=== PATIENT | female | born 2000 | race Caucasian/White ===

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

== ENCOUNTER 2021-03-11 12:30 | Outpatient (CLI) | payer OTHER ==
[~2021-03-11 12:30] MED LIST changes: +FERROUS SULFAT325 M2 PO
== END 2021-03-11 13:58 | disposition home or self-care (01) ==
LOC: GENOP 12:30
DX: O36.8120 Decreased fetal movements, second trimester, not applicable or unspecified (principal); O36.0920 Maternal care for other rhesus isoimmunization, second trimester, not applicable or unspecified; Z3A.23 23 weeks gestation of pregnancy; Z88.0 Allergy status to penicillin
CPT/HCPCS: 59025

== ENCOUNTER 2021-06-01 11:23 | Outpatient (CLI) | payer OTHER ==
[2021-06-01 13:31] LABS: BUN/CREATININE RATIO 7 (0-10)
== END 2021-06-01 14:30 | disposition home or self-care (01) ==
LOC: GENOP 11:23
PROVIDERS: Obstetrics & Gynecology
DX: O36.8130 Decreased fetal movements, third trimester, not applicable or unspecified (principal); O26.893 Other specified pregnancy related conditions, third trimester; L29.9 Pruritus, unspecified; O99.013 Anemia complicating pregnancy, third trimester; D64.9 Anemia, unspecified; Z88.0 Allergy status to penicillin; Z3A.35 35 weeks gestation of pregnancy
CPT/HCPCS: 59025; 80053; 81001; 82239

== ENCOUNTER 2021-06-04 16:34 | Inpatient (IN) | payer OTHER ==
[~2021-06-04] VITALS: Ht 149.9 cm; Wt 54.9 kg
[2021-06-04 18:10] LABS: RED BLOOD COUNT 3.75 M/UL (4.00-5.10); WHITE BLOOD COUNT 16.7 K/UL (4.5-11.0)
[2021-06-06 08:56] LABS: HEMOGLOBIN 8.5 gm/dl (12.3-15.3)
[2021-06-06] MEDS ORDERED: FERROUS SULFAT325 M2 PO (13:21)
[2021-06-06] MEDS ORDERED: IBUPROFEN600 MG PO (13:21)
[2021-06-06] MEDS ORDERED: HYDROCODON-ACE1 EAC4 PO (13:21)
[2021-06-06] MEDS ORDERED: DOCUSATE SODIU100 MG PO (13:21)
== END 2021-06-06 15:30 | disposition home or self-care (01) | DRG 805 ==
LOC: GENOP 16:34 → OB 17:27
PROVIDERS: Obstetrics & Gynecology; ADMIT Obstetrics & Gynecology
PROC: 10E0XZZ Delivery of Products of Conception, External Approach (ICD-10-PCS; principal; 2021-06-04)
PROC: 0KQM0ZZ Repair Perineum Muscle, Open Approach (ICD-10-PCS; 2021-06-04)
PROC: 10907ZC Drainage of Amniotic Fluid, Therapeutic from Products of Conception, Via Natural or Artificial Opening (ICD-10-PCS; 2021-06-04)
PROC: 4A1HXCZ Monitoring of Products of Conception, Cardiac Rate, External Approach (ICD-10-PCS; 2021-06-04)
PROC: 3E0DXGC Introduction of Other Therapeutic Substance into Mouth and Pharynx, External Approach (ICD-10-PCS; 2021-06-04)
PROC: 00HU33Z Insertion of Infusion Device into Spinal Canal, Percutaneous Approach (ICD-10-PCS; 2021-06-04)
PROC: 3E0R3BZ Introduction of Anesthetic Agent into Spinal Canal, Percutaneous Approach (ICD-10-PCS; 2021-06-04)
DX: O26.62 Liver and biliary tract disorders in childbirth (principal); K83.1 Obstruction of bile duct; Z37.0 Single live birth; O99.02 Anemia complicating childbirth; D64.9 Anemia, unspecified; Z20.822 Contact with and (suspected) exposure to COVID-19; O70.1 Second degree perineal laceration during delivery; O75.89 Other specified complications of labor and delivery; Z3A.36 36 weeks gestation of pregnancy; Z88.0 Allergy status to penicillin; Z91.040 Latex allergy status
CPT/HCPCS: 36415; 51702; 59025; 80053; 81001; 82239; 82800; 85014; 85018; 85025; 85461; 86850; 86900; 86901; J0690; J2210; J2405; J2590; J2790; J7120; U0002

== ENCOUNTER 2021-09-19 08:13 | Emergency (ER) | payer OTHER ==
[~2021-09-19 08:13] MED LIST changes: +DOCUSATE SODIU100 MG PO; +HYDROCODON-ACE1 EAC4 PO
[2021-09-19 08:36] LABS: HEMOGLOBIN 12.8 gm/dl (12.3-15.3); RED BLOOD COUNT 4.97 M/UL (4.00-5.10); WHITE BLOOD COUNT 9.2 K/UL (4.5-11.0)
[2021-09-19 08:57] LABS: BUN/CREATININE RATIO 12 (0-10)
== END 2021-09-19 10:18 | disposition home or self-care (01) ==
LOC: ER1 08:13
PROVIDERS: Student in an Organized Health Care Education/Training Program
DX: N93.9 Abnormal uterine and vaginal bleeding, unspecified (principal); Z88.0 Allergy status to penicillin
CPT/HCPCS: 80048; 81001; 84702; 85025; 86850; 86900; 86901; 93005; 99284